=== PATIENT | female | born 1965 | race Caucasian/White ===

== ENCOUNTER 2016-09-27 16:14 | Emergency (ER) | payer OTHER ==
[~2016-09-27] VITALS: Ht 157.5 cm; Wt 65.8 kg
--- NOTE | 2016-09-27 17:05 | ED INFLUENZA/URI COMPLAINT ---
History of Present Illness General Chief Complaint: General Adult Stated Complaint: PT HAS COUGHING,NAUSEA ,CHEST HURT Source: patient Exam Limitations: no limitations Vital Signs & Intake/Output Vital Signs & Intake/Output Vital Signs Date Time Temp Pulse Resp B/P Pulse O2 O2 Flow FiO2 Ox Delivery Rate 09/27 1838 Room Air 09/27 1838 100 16 135/90 97 Room Air 09/27 1802 99 09/27 1621 99.0 87 20 136/87 100 Room Air ED Intake and Output 09/28 0000 09/27 1200 Intake Total 0 Output Total Balance 0 Intake, Oral 0 Patient 145 lb Weight Allergies Coded Allergies: No Known Allergies (09/27/16) Reconcile Medications Albuterol Sulfate (Proair Hfa) 90 MCG HFA.AER.AD 2 PUF INH Q4-6 PRN PRN DYSPNEA Benzonatate (Tessalon Perle) 100 MG CAPSULE 1 CAP PO TID PRN COUGH Triage Note: TRIAGE: PT TO ER C/C 5 WKS OF SICKNESS, STARTED WITH "MASSIVE HEADACHE AND NAUSEA". STARTED TO FEEL BETTER BUT THEN WORSENING AGAIN WITH NASAL/CHEST CONGESTION. COUGH IS NONPRODUCTIVE. Triage Nurses Notes Reviewed? yes Onset: Gradual Duration: week(s): (5) Timing: recent history Severity: moderate No Modifying Factors: none Associated Symptoms: chest pain, cough, muscle aches, sore throat, ANXIETY HPI: This is a 51-year-old female presents to the ER with chief complaint of a 5 week history of cough and congestion as well as some sinus pain. She states that she is on day 4 of azithromycin given to her by an urgent care clinic for upper respiratory infection. Denies any sick high fevers but had subjective temperature last night. She decided to come in today to have everything evaluated including chest x-ray prior to ultrasound and blood work. She states she has a strong family history for thyroid disorders as well as ovarian cancer and diabetes and wants to make sure she does not cancer. Past History Travel History Traveled to [place] past 21 day No Medical History Any Pertinent Medical History? see below for history Neurological: NONE EENT: NONE Cardiovascular: NONE Respiratory: NONE Gastrointestinal: NONE Hepatic: NONE Renal: NONE Musculoskeletal: NONE Psychiatric: NONE Endocrine: hypothyroidism Blood Disorders: NONE Cancer(s): NONE DIRECTOR PUBLIC SERVICE/Reproductive: NONE Surgical History Surgical History: non-contributory Psychosocial History What is your primary language Telugu Tobacco Use: Never used ETOH Use: occasional use Illicit Drug Use: denies illicit drug use Family History Hx Contributory? No Review of Systems Review of Systems Constitutional: Reports: fever (SUBJECTIVE). EENTM: Reports: no symptoms. Respiratory: Reports: cough, short of breath, sputum production. Cardiovascular: Reports: chest pain. Denies: palpitations. GI: Denies: abdominal pain. Genitourinary: Reports: no symptoms. Musculoskeletal: Reports: no symptoms. Skin: Reports: no symptoms. Neurological/Psychological: Reports: anxiety. Hematologic/Endocrine: Denies: bruising, bleeding, polyuria, polydipsia. Immunologic/Allergic: Denies: splenectomy. All Other Systems: Reviewed and Negative Physical Exam Physical Exam General Appearance: well developed/nourished, alert, awake, anxious, mild distress Head: atraumatic, normal appearance Eyes: Bilateral: normal appearance, PERRL, EOMI. Ears, Nose, Throat: normal ENT inspection, moist mucous membrane, hearing grossly normal, Tympanic normal, pharynx normal, nasal congestion Neck: normal inspection, supple, full range of motion Respiratory: normal breath sounds, chest non-tender, no respiratory distress Cardiovascular: regular rate/rhythm Peripheral Pulses: 2+ radial (R), 2+ radial (L) Gastrointestinal: normal bowel sounds, soft, non-tender Extremities: normal inspection, normal capillary refill, normal range of motion, no edema Neurologic/Psych: no motor/sensory deficits, awake, alert, oriented x 3, normal gait Skin: intact, normal color, warm/dry Core Measures Severe Sepsis Present: No Septic Shock Present: No Progress Differential Diagnosis: influenza, pneumonia, BRONCHITIS, URI Plan of Care: Orders Procedure Date/time Status TROPONIN LEVEL 09/27 1721 Complete RT ED ORDERS 09/27 1707 Active EKG 09/27 170 Active THYROID STIMULATING HORMONE 09/27 170 Complete FREE T4 09/27 170 Complete COMPREHENSIVE METABOLIC PANEL 09/27 170 Complete CBC WITHOUT DIFFERENTIAL 09/27 170 Complete Laboratory Tests 09/27/16 1721: Anion Gap 11, Estimated GFR > 60, BUN/Creatinine Ratio 18.8, Glucose 99, Calcium 9.3, Total Bilirubin 0.6, AST 18, ALT 28, Alkaline Phosphatase 73, Troponin I < 0.01, Total Protein 7.2, Albumin 4.3, Globulin 2.9, Albumin/Globulin Ratio 1.5, TSH 2.100, Free T4 1.34, CBC w Diff NO MAN DIFF REQ, RBC 4.49, MCV 82.1, MCH 27.5, RDW 13.2, MPV 7.1 L, Gran % 81.1 H, Lymphocytes % 12.7 L, Monocytes % 4.1, Eosinophils % 1.5, Basophils % 0.6, Absolute Granulocytes 6.6 H, Absolute Lymphocytes 1.0 L, Absolute Monocytes 0.3, Absolute Eosinophils 0.1, Absolute Basophils 0, PUBS MCHC 33.5 09/27/16 1707: Troponin I Cancelled LABSS, EKG, CXR ORDERED. ALBUTEROL NEBULIZER TREATMENT ORDERED. (SHERIE BAILEY,[place]) Diagnostic Imaging: Viewed by Me: Radiology Read. Discussed w/RAD: Radiology Read. CXR Impression: PATIENT: MARTINA PALOMINO PRESENT AGE: 51 PATIENT ACCOUNT NO: [id number] : 63 LOCATION: [facility] ORDERING PHYSICIAN: GERMAIN REHMAN MD SERVICE DATE: 09/27/16-1704 EXAM TYPE: RAD - XRY-CHEST XRAY , PA AND LATERAL EXAMINATION: XR CHEST CLINICAL INFORMATION: Rule out pneumonia. Cough, dyspnea COMPARISON: None. TECHNIQUE: PA and lateral views of the chest were obtained. FINDINGS: Lungs are clear. No focal consolidation or mass. Normal pulmonary vascularity. No pleural effusion or pneumothorax. Normal heart size. Regional skeleton intact. IMPRESSION: No acute pulmonary disease. DICTATED BY: TESS NAJERA MD DATE/TIME DICTATED:09/27/161738 INTERNET SECURITY SPECIALIST:RENETTA DATE/TIME TRANSCRIBED:09/27/161738 CONFIDENTIAL, DO NOT COPY WITHOUT APPROPRIATE AUTHORIZATION. <Electronically signed in Other Vendor System> SIGNED BY: TESS NAJERA MD 09/27/161744 Initial ED EKG: none Departure Departure Time of Disposition: 1822 Disposition: HOME OR SELF CARE Condition: Stable Clinical Impression Primary Impression: Bronchitis Referrals: KARI BAILEY,GERALDINE Messer (PCP/Family) Additional Instructions: USE THE INHALER DIRECTED. FOLLOW UP WITH OUTPATIENT ULTRASOUND AND WITH YOUR DOCTOR IN THE OFFICE. CONTINUE YOUR ZPACK. Departure Forms: Customer Survey General Discharge Information Prescriptions: Current Visit Scripts Albuterol Sulfate (Proair Hfa) 2 PUF INH Q4-6 PRN PRN DYSPNEA #1 INHAL Benzonatate (Tessalon Perle) 1 CAP PO TID PRN COUGH #30 CAP
[2016-09-27 17:35] LABS: ABSOLUTE BASOPHIL COUNT 0 /CUMM (0.0-0.2); ABSOLUTE EOSINOPHIL COUNT 0.1 /CUMM (0.0-0.7); ABSOLUTE GRANULOCYTE CT 6.6 /CUMM (1.4-6.5); ABSOLUTE MONOCYTE COUNT 0.3 /CUMM (0.10-0.60); BASOPHIL % 0.6 % (0.0-2.0); EOSINOPHIL % 1.5 % (0-5); GRANULOCYTE % 81.1 % (42.2-75.2); HEMATOCRIT 36.9 % (37-47); MEAN CORPUSCULAR HGB 27.5 PG (27.0-31.0); MEAN CORPUSCULAR HGB CONC 33.5 G/DL (33.0-37.0); MEAN CORPUSCULAR VOLUME 82.1 FL (81.0-99.0); MEAN PLATELET VOLUME 7.1 FL (7.4-10.4); PLATELET COUNT 271 /CUMM (130-400); RBC DISTRIBUTION WIDTH 13.2 % (11.5-14.5); RED BLOOD CELL CT 4.49 /CUMM (4.20-5.40); WHITE BLOOD CELL COUNT 8.1 /CUMM (4.8-10.8)
--- NOTE | 2016-09-27 17:45 | RADIOLOGY REPORT ---
EXAMINATION: XR CHEST CLINICAL INFORMATION: Rule out pneumonia. Cough, dyspnea COMPARISON: None. TECHNIQUE: PA and lateral views of the chest were obtained. FINDINGS: Lungs are clear. No focal consolidation or mass. Normal pulmonary vascularity. No pleural effusion or pneumothorax. Normal heart size. Regional skeleton intact. IMPRESSION: No acute pulmonary disease.
[2016-09-27] MEDS ORDERED: PROAIR HFA8.5 GM INH (18:09)
[2016-09-27] MEDS ORDERED: TESSALON PERLE100 M1 PO (18:09)
[2016-09-27 18:38] VITALS: BP 135/90
== END 2016-09-27 18:39 ==
LOC: ERH 16:14
PROVIDERS: Emergency Medicine
DX: R07.9 Chest pain, unspecified (principal); J40 Bronchitis, not specified as acute or chronic
CPT/HCPCS: 1263; 93005; 93010